=== PATIENT | male | born 1975 | race Caucasian/White ===

== ENCOUNTER 2021-11-13 08:08 | Emergency (ER) | payer BC, SELFPAY ==
[2021-11-13 08:14] VITALS: BP 113/73; PULSE 86; RESP 18; TEMP 36.6; O2SAT 97
--- NOTE | 2021-11-13 08:18 | ED.URI ---
HPI - URI/Sore Throat General Chief Complaint: Upper Respiratory Infection Stated Complaint: Body Aches/Fever Time Seen by Provider: 11/13/21 08:19 Source: patient Mode of arrival: ambulatory Limitations: no limitations History of Present Illness HPI Narrative: 46 yo M presents with c/o bodyaches, sweating, fatigue, headache since yesterday. No cough, congestion or sore throat. States grandchild sick with virus. Also reports works outside and drinks very little water. Denies N/V/D. All systems reviewed and negative except as noted above. Related Data Home Medications Medication Instructions Recorded Confirmed fenofibrate nanocrystallized 48 mg 1 tablet PO DAILY 11/13/21 11/13/21 tablet ubrogepant 100 mg tablet (Ubrelvy) 1 tablet PO DAILY 11/13/21 11/13/21 Allergies Allergy/AdvReac Type Severity Reaction Status Date / Time No Known Allergies Allergy Verified 11/13/21 08:20 Review of Systems Review of Systems: CONSTITUTIONAL: Reports fever, chills, or sweats. EYES: Denies visual changes, redness, or discharge. ENT: Denies rhinorrhea, congestion, sore throat, or otalgia. CARDIOVASCULAR: Denies chest pain, palpitations, or edema. RESPIRATORY: Denies cough or dyspnea. GASTROINTESTINAL: Denies abdominal pain, nausea, vomiting, or diarrhea. GENITOURINARY: Denies dysuria or hematuria. SKIN: Denies rash or itching. MUSCULOSKELETAL: Denies back pain, joint pain. Reports myalgia. NEUROLOGIC: Reports headache. Denies numbness, or weakness. PSYCHIATRIC: Denies anxiety or depression. All other systems reviewed are negative, except as documented in HPI. PMFSH Comments At time of signature, agree with nursing past medical, surgical, social and family history. There is no relevant family history pertinent to the presenting complaint. Exam Narrative: GENERAL: This is a well-nourished, well-developed patient. Patient ill-appearing but in no distress. HEAD: normocephalic, atraumatic. EYES: PERRL. Sclera clear/white. Vision is grossly intact. EARS: External ears normal, auditory canals clear and without drainage, TMs normal without perforation. Hearing grossly intact. NOSE: External nose normal with no obvious nasal discharge, nares without redness, no rhinorrhea. THROAT: Mucous membranes moist, posterior pharynx clear. NECK: Neck supple, non-tender without lymphadenopathy, masses or thyromegaly. CARDIOVASCULAR: Regular rate and rhythm without murmurs, gallops, or rubs. RESPIRATORY: Clear to auscultation. Breath sounds equal bilaterally. No wheezes, rales, or rhonchi. SKIN: warm, Dry, intact with no suspicious lesions or rash, good texture and turgor. NEURO: awake, alert, and oriented to person, place and time. There were no obvious focal neurologic abnormalities. EXTREMITIES: No joint tenderness, effusion, or edema noted. Course Course Level of Care: Express Care Visit Vital Signs Vital signs: Vital Signs Temperature 36.6 C 11/13/21 08:14 Pulse Rate 86 11/13/21 08:14 Respiratory Rate 18 11/13/21 08:14 Blood Pressure 113/73 11/13/21 08:14 Pulse Oximetry 97 11/13/21 08:14 Oxygen Delivery Room Air 11/13/21 08:14 Temperature 36.6 C 11/13/21 08:23 Pulse Rate 86 11/13/21 08:23 Respiratory Rate 18 11/13/21 08:23 Blood Pressure 113/73 11/13/21 08:23 Pulse Oximetry 97 11/13/21 08:23 Oxygen Delivery Room Air 11/13/21 08:23 Reviewed MDM - URI/Sore Throat MDM Narrative Medical decision making narrative: Patient is aware of diagnosis, understands and agrees to treatment plan. Anticipatory guidance given. Patient agrees to follow-up as directed and is aware of reasons to seek care at the emergency department. Portions of this record may have been created with voice recognition software neg covid and influenza. neg UA. Recommend treating bodyahces with OTC pain meds, hydrating. Lab Data Labs: Influenza A Screen Negative
[2021-11-13 08:23] VITALS: BP 113/73; PULSE 86; RESP 18; TEMP 36.6; O2SAT 97
== END 2021-11-13 09:00 | disposition home or self-care (01) ==
PROVIDERS: Emergency Provider Nurse Practitioner Family; PCP Internal Medicine
DX: B34.9 Viral infection, unspecified (principal); Z20.822 Contact with and (suspected) exposure to COVID-19; E78.00 Pure hypercholesterolemia, unspecified
CPT/HCPCS: 81003; 87426; 87804; 99203; C9803; G0463

== ENCOUNTER 2024-09-04 09:07 | Emergency (ER) | payer BC, SELFPAY ==
--- NOTE | ~2024-09-04 | XR_ITS ---
XR chest 2V Ordering provider: Davin Marin APRN History: 49 years Male with . cough, crackles,smoker . Comparison: None. FINDINGS: MEDIASTINUM: The cardiac silhouette is not enlarged. LUNGS: No infiltrates, effusions or pneumothorax. OTHER: No free air under the diaphragm. IMPRESSION: No acute cardiopulmonary pathology. Reviewed, dictated and finalized at location A.
--- OUTSIDE RECORDS SUMMARY | 2024-09-04 09:12 | XMS_ITS | Clinical Summary ---
Author Organization [facility] Address [address] [place] [id number] Care Team Providers Care Public Works Inspector Name Role Phone La Gregorio DO Primary Care Provider [phone] Allergies No known active allergies Medications ubrogepant (Ubrelvy) 100 mg tablet Take by mouth once as needed for migraine 1 Active fenofibrate nanocrystallized (TRICOR) 48 mg tablet Take 1 tablet (48 mg total) by mouth daily 4 Active Active Problems No known active problems Medical History Medical History Date Comments Migraine Hyperthyroidism untreated. GERD (gastroesophageal reflux disease) Hyperlipidemia Social History Tobacco Use Types Packs/Day Years Used Date Smoking Tobacco: Every Day Cigarettes Smokeless Tobacco: Never Tobacco Cessation:Ready to Q uit: Not Asked; Counseling Given: Not Answered AUDIT-C Answer Date Recorded Q1: How often do you have a drink containing alcohol? Never 11/19/2023 Q2: How many drinks containi ng alcohol do you have on a typical day when you are drinking? Patient does not drink 4 Q3: How often do you have si x or more drinks on one occasion? Never 11/19/2023 Personal Safety Answer Date Recorded Have you ever been in or are you currently in a harmful physical or emotional relationship or is someone making you feel afraid or unsafe? 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 Gender Identity Not on file Sexual Orientation Not on file Obstetrics History Last Filed Vital Signs Vital Sign Reading Time Taken Comments Blood Pressure 124/90 11/19/2023 10:05 AM CDT Pulse 68 11/19/2023 10:05 AM CDT Temperature 36.2 C (97.2 F) 11/19/2023 9:46 AM CDT Respiratory Rate 27 11/19/2023 10:05 AM CDT Oxygen Saturation 98% 11/19/2023 10:05 AM CDT Inhaled Oxygen Concentration - - Weight 72.6 kg (160 lb) 07/28/2023 2:41 PM CDT Height 177.8 cm (5' 10 ) 07/28/2023 2:41 PM CDT Body Mass Index 22.96 07/28/2023 2:41 PM CDT Plan of Treatment Health Maintenance Due Date Last Done Comments Depression Screening 1975 Hepatitis C Screening 1975 Hepatitis B Screening 1995 Regular Well Visit/Exam 18-64 1995 Pneumococcal vaccine <65 (1 of 2 - PCV) 02/12/1996 DTaP/Tdap/Td Vaccine (1 - Tdap) 12/13/2014 5, 10/07/2005 Covid-19 Vaccine (3 - season) 2024, 10/08/2020 Influenza Vaccine (#1) 2024 02/24/2020 Colon Cancer Screening-Colonoscopy 11/18/20332023 Procedures Procedure Name Priority Date/Time Associated Diagnosis Comments COLONOSCOPY 11/19/2023 8:55 AM CDT from Last 3 Months or Most Recently Relevant to Health Maintenance Results * Colonoscopy (11/19/2023 8:55 AM CDT) Anatomical Region Laterality Modality Other Narrative Procedure Note Calderon Ortiz MD - 11/19/2023 8:55 AM CDT [facility] GI ENDOSCOPY Patient Name: Jose Spears Procedure Date: 11/19/2023 8:55 AM Date of : 1975 Admit Type: Outpatient Age: 48 Gender: Male Attending MD: Calderon Ortiz MD Room: [facility] ENDOSCOPY ROOM 06 Note Status: Finalized Procedure: Colonoscopy Indications: Screening for colorectal malignant neoplasm Referring MD: Providers: Calderon Ortiz MD Medicines: See the Anesthesia note for documentation of the administered medications Complications: No immediate complications. Estimated Blood Loss: Estimated blood loss: none. Procedure: The benefits, risks and alternatives of theprocedure and sedation were discussed and informed consentwas obtained. All questions were answered. Please referto the signed informed consent document in the medical record. The scope was passed under direct vision.The CF-H190L colonoscope was introduced through theanus and advanced to the cecum, identified byappendiceal orifice and ileocecal valve. The colonoscopy was performed without difficulty. The patient tolerated the procedure well. The quality of the bowel preparation was adequate. Findings: The perianal and digital rectal examinations were normal. Pertinent negatives include normal sphincter tone. Scattered medium-mouthed diverticula were found in the sigmoidcolon. The retroflexed view of the distal rectum and anal verge was normaland showed no anal or rectal abnormalities. Impression: - Diverticulosis in the sigmoid colon. - The distal rectum and anal verge are normal on retroflexion view. - No specimens collected. Recommendation: - Use fiber, for example Citrucel, Fibercon, Konsylor Metamucil. Recommend 20 to 25 g daily with [id number] oz water to stay hydrated. You can titrate this upor down for soft, formed bowel movements. Repeat colonoscopy in 10 years. - Repeat colonoscopy in 10 years for screening purposes. Calderon Ortiz Calderon Ortiz MD 11/19/2023 9:51:24 AM . Number of Addenda: 0 Note Initiated On: 11/19/2023 8:55 AM Recognized by the [employer] for promoting quality in endoscopy Calderon Ortiz MD ENDOSCOPY PROCEDURES Final Result from Last 3 Months or Most Recently Relevant to Health Maintenance Insurance [employer] PREFERRED [facility] PPO [place] BLUE ACCESS OOS Care Teams Public Works Inspector Relationship Specialty Start Date End Date La Gregorio DO PCP - General 01/05/20
--- OUTSIDE RECORDS SUMMARY | 2024-09-04 09:12 | XMS_ITS | Referral Summary ---
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 GI ENDOSCOPY Patient Name: Jose Spears Procedure Date: 11/19/2023 8:55 AM Date of : 1975 Admit Type: Outpatient Age: 48 Gender: Male Attending MD: Calderon Ortiz MD Room: [facility] ENDOSCOPY ROOM 06 Note Status: Finalized Procedure: [...] Recommend 20 to 25 g daily with [id number] oz water to stay hydrated. You can titrate this upor down for soft, formed bowel movements. Repeat colonoscopy in 10 years. - Repeat colonoscopy in 10 years for screening purposes. Calderon Ortiz Calderon Ortiz MD 11/19/2023 9:51:24 AM . Number of Addenda: 0 Note Initiated On: 11/19/2023 8:55 AM Recognized by the [place] [employer] for promoting quality in endoscopy Calderon Ortiz MD ENDOSCOPY PROCEDURES Final Result from Last 3 Months or Most Recently Relevant to Health Maintenance Insurance [employer] PREFERRED [employer] [place] BLUE ACCESS OOS Care Teams Occupancy Specialist Relationship Specialty Start Date End Date La Gregorio DO PCP - General 01/05/20
[2024-09-04 09:20] VITALS: BP 124/72; PULSE 77; RESP 20; TEMP 36.8; O2SAT 97
--- NOTE | 2024-09-04 09:58 | ED_ITS ---
HPI - URI/Sore Throat General Chief Complaint: Upper Respiratory Infection Stated Complaint: Cough, runny nose Time Seen by Provider: 09/04/24 09:40 Source: patient and RN notes reviewed Mode of arrival: ambulatory Limitations: no limitations History of Present Illness HPI Narrative: 49-year-old male presents Express Care complaining of upper respiratory symptoms for 6 days. Patient reports having a cough, nasal congestion, chest congestion, chills, body aches. Patient denies any fever, sore throat, ear pain, chest pain, or shortness of breath. Patient reports he is a pack and a half day smoker. Patient denies any COPD or lung problems. Patient denies any significant past medical history. Patient has been taking Mucinex with mild relief. Related Data Home Medications ?Medication ?Instructions ?Recorded ?Confirmed ?Last Taken ?Type fenofibrate nanocrystallized 48 mg 1 tablet PO DAILY 11/13/21 11/13/21 Unknown History tablet ubrogepant 100 mg tablet (Ubrelvy) 1 tablet PO DAILY 11/13/21 11/13/21 Unknown History Allergies Allergy/AdvReac Type Severity Reaction Status Date / Time No Known Allergies Allergy Verified 09/04/24 09:51 Review of Systems Review of Systems: CONSTITUTIONAL: Denies fever or sweats. Positive for chills and body aches. EYES: Denies visual changes, redness, or discharge. ENT: Denies rhinorrhea, sore throat, or otalgia. Positive for nasal congestion. CARDIOVASCULAR: Denies chest pain, palpitations, syncope, or edema. RESPIRATORY: Positive for productive cough and chest congestion. Negative for dyspnea. GASTROINTESTINAL: Denies abdominal pain, nausea, vomiting, or diarrhea. GENITOURINARY: Denies dysuria or hematuria. SKIN: Denies rash or itching. MUSCULOSKELETAL: Denies back pain, joint pain, or myalgia. NEUROLOGIC: Denies headache, numbness, or weakness. PSYCHIATRIC: Denies anxiety or depression. All other systems reviewed are negative, except as documented in HPI. PMFSH Comments At the time of my signature, I reviewed and agree with the nursing past medical, surgical, social, and family history. There is no relevant family history pertinent to the patient complaint. Exam Narrative: GENERAL: This is a well-nourished, well-developed adult, in no apparent distress. They are non ill-appearing, nontoxic appearing. HEAD: normocephalic, atraumatic. EYES: Sclera clear/white. Conjunctiva normal. Vision is grossly intact. Extraocular movements intact EARS: External ears normal, auditory canals clear and without drainage, TMs normal without perforation. Hearing grossly intact. NOSE: External nose normal with thick nasal discharge, nasal turbinates erythematous bilaterally, No rhinorrhea. THROAT: Mucous membranes moist, posterior pharynx erythemic without swelling. Uvula midline. No exudate. Postnasal drip present. NECK: Neck supple, non-tender without lymphadenopathy, masses or thyromegaly. CARDIOVASCULAR: Regular rate and rhythm without murmurs, gallops, or rubs. RESPIRATORY: Crackles present to bilateral lower lobes. Breath sounds equal bilaterally. No wheezes, rales, or rhonchi. SKIN: warm, Dry, intact with no suspicious lesions or rash, good texture and turgor. NEURO: awake, alert, and oriented to person, place and time. There were no obvious focal neurologic abnormalities. EXTREMITIES: No joint tenderness, effusion, or edema noted. BACK: Nontender without deformity. No CVA tenderness. Course Course Emergency Course: Portions of this record may have been created with voice recognition software Level of Care: Express Care Visit Vital Signs Vital signs: Vital Signs Temperature 98.2 F 09/04/24 09:20 Pulse Rate 77 09/04/24 09:20 Respiratory Rate 20 09/04/24 09:20 Blood Pressure 124/72 09/04/24 09:20 Pulse Oximetry 97 09/04/24 09:20 Oxygen Delivery Room Air 09/04/24 09:20 Temperature 98.2 F 09/04/24 09:20 Pulse Rate 77 09/04/24 09:20 Respiratory Rate 20 09/04/24 09:20 Blood Pressure 124/72 09/04/24 09:20 Pulse Oximetry 97 09/04/24 09:20 Oxygen Delivery Room Air 09/04/24 09:20 Reviewed MDM - URI/Sore Throat MDM Narrative Medical decision making narrative: Checks x-ray was negative for any acute cardiopulmonary findings. Rapid flu is negative. Given patient's smoking history in length the symptoms will go ahead and treat him empirically with doxycycline for a purulent bronchitis. Discussed physical exam findings. Advised supportive measures and signs/symptoms to go to the ER. Pt is appropriate for outpt treatment and f/u. Differential Diagnosis Differential diagnosis: Likely other (Pneumonia, bronchitis, upper respiratory infection) Lab Data Attestation: I reviewed the patient's lab results. Imaging Data Radiologist's impression: ITS Impressions Chest X-Ray 09/04/24 10:25 IMPRESSION: No acute cardiopulmonary pathology. Critical Care Time Critical Care Time Critical Care Time: No Discharge Plan Discharge Clinical Impression: Acute purulent bronchitis Patient Disposition: Home Condition: Stable Instructions: Antibiotic Form, Community Acquired Pneumonia (ED) Additional Instructions: Your rapid flu was negative. Please take antibiotics as directed. Please finish the full course of antibiotics. Please wear sunscreen outside while taking doxycycline. You May take Tylenol ibuprofen as needed for pain or fevers. May take Zyrtec or Claritin for congestion. Drink plenty of fluids and rest. Follow-up with primary care provider in 3-5 days. If your symptoms worsen, he developed shortness of breath, worsening fevers, chest pain or any other concerns please go to the ER immediately. Patient Language: Slovak Prescriptions: New doxycycline monohydrate 100 mg capsule 100 mg PO BID 5 Days Qty: 10 0RF No Action fenofibrate nanocrystallized 48 mg tablet 1 tablet PO DAILY Ubrelvy 100 mg tablet 1 tablet PO DAILY Follow-up/Referrals: Jg,[place], [Primary Care Provider] - Stand Alone Forms: Work/School Release IP Time of Disposition: 10:44
[2024-09-05 11:56] LABS: EDINFLUASCREEN Negative (Negative); EDINFLUBSCREEN Negative (Negative)
== END 2024-09-04 10:48 | disposition home or self-care (01) ==
PROVIDERS: PCP Internal Medicine
DX: J20.9 Acute bronchitis, unspecified (principal); E78.00 Pure hypercholesterolemia, unspecified
CPT/HCPCS: 71046; 87804; 99213; G0463